=== PATIENT | male | born 1980 | race Asian ===

== ENCOUNTER 2016-11-20 20:06 | Inpatient (IN) | payer BC ==
[~2016-11-20] VITALS: Ht 180.3 cm; Wt 87.8 kg
[2016-11-20] MEDS ORDERED: HYDROCODONE/APAP 5-325MG TABLET PO ONE (21:00)
[2016-11-20] MEDS ORDERED: HYDROCODONE/APAP 5-325MG TABLET ONE (21:17)
[2016-11-20] MEDS ORDERED: DEXAMETHASONE SOD PHOSPHATE 4 MG INJ IV ONE (22:45)
[2016-11-20 22:50] LABS: BASOPHILS # (AUTO) 0.1 K/uL (0.0-8.0); BASOPHILS % (AUTO) 1.1 % (0.0-2.0); EOSINOPHILS # (AUTO) 0.2 K/uL (0.0-0.7); EOSINOPHILS % (AUTO) 1.8 % (0.0-7.0); HEMATOCRIT 44.9 % (40-50); HEMOGLOBIN 15.2 G/DL (14.0-18.0); LYMPHOCYTES # (AUTO) 2.5 K/UL (0.8-4.8); LYMPHOCYTES % (AUTO) 26.2 % (20.5-51.5); MEAN CORPUSCULAR HEMOGLOBIN 29.1 UUG (27.0-31.0); MEAN CORPUSCULAR HGB CONC 34 g/dL (32.0-37.0); MEAN CORPUSCULAR VOLUME 86.4 FL (82.0-92.0); MONOCYTES # (AUTO) 0.6 K/UL (0.1-1.30); MONOCYTES % (AUTO) 6.5 % (0.0-11.0); NEUTROPHILS # (AUTO) 6.1 K/UL (1.8-8.9); NEUTROPHILS % (AUTO) 64.4 % (38.5-71.5); PLATELET COUNT (AUTO) 291 K/UL (150-450); WHITE BLOOD COUNT (AUTO) 9.5 K/UL (4.0-11.2)
[2016-11-20 22:57] LABS: CREATININE 1.2 mg/dL (0.6-1.3); POTASSIUM 3.7 mmol/L (3.5-5.1)
[2016-11-20 23:03] LABS: BILIRUBIN,DIRECT 0.2 mg/dL (0.0-0.2); BILIRUBIN,TOTAL 0.7 mg/dL (0.2-1.0); TOTAL PROTEIN, SERUM 7.8 g/dL (6.4-8.2)
[2016-11-20] MEDS ORDERED: DEXAMETHASONE SOD PHOSPHATE 10 MG INJ ONE (23:04)
[2016-11-20] MEDS ORDERED: ONDANSETRON 4 MG/2 ML VIAL ONE (23:43)
[2016-11-20] MEDS ORDERED: MORPHINE SULFATE 2 MG/1 ML DISP.SYRIN ONE (23:43)
[2016-11-20] MEDS ORDERED: ONDANSETRON 4 MG/2 ML VIAL IV ONE (23:45)
[2016-11-20] MEDS ORDERED: MORPHINE SULFATE 2 MG/1 ML DISP.SYRIN IV ONE (23:45)
[2016-11-21] MEDS ORDERED: IV NS 1000 ML 1,000 ML IV ONE (00:15)
[2016-11-21 01:25] VITALS: BP 129/71
--- NOTE | 2016-11-21 01:30 | NUR ---
Pt. admitted to [place], under care of Karlie Glez List completed.
--- NOTE | 2016-11-21 01:30 | NUR ---
RECEIVED PATIENT FROM ER VIA GURNEY, ACCOMPANIED BY . PT IS ALERT, AMBULATORY, IN NO ACUTE DISTRESS, [place] C-COLLAR IN PLACE. PT IS ADMITTED UNDER THE CARE OF DR. VICK. DX: NECK INJURY. BELONGING LIST DONE, ADMISSION PROCESS AND CARE PLAN INITIATED. SAFETY MEASURES IN PLACE, C SPINE PRECAUTION AT ALL TIMES, CALL LIGHT WITHIN REACH. WILL CONTINUE TO MONITOR.
--- NOTE | 2016-11-21 01:45 | NUR ---
NOTIFIED FOR NEW ADMISSION ORDERS.
[2016-11-21] MEDS ORDERED: HYDROCODONE/APAP 5-325MG TABLET PO PRN (02:45)
[2016-11-21] MEDS ORDERED: ACETAMINOPHEN 325 MG TABLET PO PRN (02:45)
[2016-11-21] MEDS ORDERED: ZOLPIDEM 5 MG TABLET PO PRN (02:45)
[2016-11-21] MEDS ORDERED: ONDANSETRON 4 MG/2 ML VIAL IV PRN (02:45)
[2016-11-21] MEDS ORDERED: DEXAMETHASONE SOD PHOSPHATE 4 MG INJ IV ONE (02:45)
[2016-11-21] MEDS: MORPHINE SULFATE 2 MG/1 ML DISP.SYRIN IV PRN ×4 (03:04→20:07)
[2016-11-21] MEDS ORDERED: MORPHINE SULFATE 2 MG/1 ML DISP.SYRIN ONE (03:16)
[2016-11-21 05:03] VITALS: BP 115/63
--- NOTE | 2016-11-21 06:30 | NUR ---
PT SLEPT WELL, IN NO ACUTE DISTRESS. C SPINE PRECAUTION AT ALL TIMES. C SPINE COLLAR SECURED AND INTACT. PAIN MANAGEMENT ORDERED. MRI QUESTIONNAIRE COMPLETED AND SIGNED BY PATIENT. AT BEDSIDE, WILL CONTINUE TO MONITOR.
--- NOTE | 2016-11-21 07:40 | NUR ---
TEXTED DR. CENTENO FOR MRI APPROVAL.
[2016-11-21] MEDS: DEXAMETHASONE SOD PHOSPHATE 4 MG INJ IV SCH ×2 (08:18→20:06)
[2016-11-21 11:10] VITALS: BP 114/68
[2016-11-21 11:44] LABS: BASOPHILS % (AUTO) 0.3 % (0.0-2.0); EOSINOPHILS % (AUTO) 0.1 % (0.0-7.0); HEMATOCRIT 45.7 % (36.7-47.1); HEMOGLOBIN 15.8 g/dL (12.5-16.3); LYMPHOCYTES # (AUTO) 0.7 K/uL (20.0-40.0); LYMPHOCYTES % (AUTO) 6.6 % (20.5-51.5); MEAN CORPUSCULAR HEMOGLOBIN 30.2 uug (23.8-33.4); MEAN CORPUSCULAR HGB CONC 35 g/dL (32.5-36.3); MEAN CORPUSCULAR VOLUME 87.6 fL (73.0-96.2); MONOCYTES # (AUTO) 0.2 K/uL (2.0-10.0); NEUTROPHILS # (AUTO) 9.3 K/uL (1.8-8.9); PLATELET COUNT (AUTO) 282 K/uL (152-348); RED BLOOD CELL COUNT(AUTO) 5.22 MIL/uL (4.06-5.63); WHITE BLOOD COUNT (AUTO) 10.2 K/uL (3.6-10.2)
[2016-11-21 11:54] LABS: BILIRUBIN,TOTAL 1.1 mg/dL (0.2-1.0); CREATININE 1.1 mg/dL (0.6-1.3); POTASSIUM 4.5 mmol/L (3.5-5.1); TOTAL PROTEIN, SERUM 7.6 g/dL (6.4-8.2)
[2016-11-21 12:00] LABS: THYROID STIMULATING HORMONE 0.565 mIU/mL (0.358-3.740)
--- NOTE | 2016-11-21 13:46 | NUR ---
OPT SEEN ON ROUNDING. PT STABLE. NO SIGNS OF ACUTE DISTRESS. PT FOUND TO AHVE A NECK BRACE ON. ORDRED NOT TO TOUCH NECK BRACE. PT SENT TO [facility] FOR MRI WITHOUT CONTRACT CERVICAL SPINE. PT GIVEN MORPHINE IN AM FOR PAIN PRIOR TO TRANSFER. PT CAME BACKA AT 13OO WITH STABLE VITALS. NO PAIN REPORTED. PT TOLD TO COLLECT URINE SAMPLE. WILL AWAIT NEW ORDERS REGARDING SPINE.
--- NOTE | 2016-11-21 13:51 | NUR ---
PORTABLE CHEST WAS NOT DONE AT 1130 SINCE PT WAS TRANSPORTED TO MRI.
[2016-11-21 15:16] VITALS: BP 126/68
[2016-11-21 15:22] LABS: *BILIRUBIN,URIN NEGATIVE (NEGATIVE); *BLOOD, URINE NEGATIVE (NEGATIVE); *CLARITY,URINE CLEAR (CLEAR); *COLOR,URINE YELLOW (YELLOW); *KETONES,URINE NEGATIVE (NEGATIVE); *PROTEIN,URINE NEGATIVE (NEGATIVE); *UROBILINOGEN,URINE 0.2 E.U./dl (NORMAL); LEUKOCYTE ESTERASE ,URINE NEGATIVE (NEGATIVE); NITRITE, URINE NEGATIVE (NEGATIVE); UGLUCOSE NEGATIVE (NEGATIVE)
[2016-11-21 15:44] LABS: BACTERIA,URINE FEW /HPF (NONE SEEN); RBC,URINE 0-3 /HPF (0-3); SQUAMOUS EPITHELIAL CELL,UR MODERATE /HPF (NONE SEEN)
--- NOTE | 2016-11-21 18:55 | NUR ---
pt stable throughout the day. iv site intact and running ns. pt sent to the [facility] for cspine without contract. urine culture pending. 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 physcisan consult recommended. will endorse to night fit nurse.
[2016-11-21 20:00] VITALS: BP 130/71
--- NOTE | 2016-11-21 20:00 | NUR ---
received pt on bed alert, awake and oriented x4. Able to make needs known. at bedside during this time. Neck brace on. No acute distress noted. Complained of 6/10 neck pain, medicated with PRN morphine as ordered. Vital signs stable. Call light within reach. All needs attended. Will continue to monitor.
[2016-11-22] MEDS: MORPHINE SULFATE 2 MG/1 ML DISP.SYRIN IV PRN ×2 (01:19→08:24)
[2016-11-22 05:25] VITALS: BP 112/59
--- NOTE | 2016-11-22 06:03 | NUR ---
pt slept well during the shift. No acute distress noted. Cervical collar kept in place. Vital signs stable. All needs attended.
[2016-11-22 07:02] LABS: BASOPHILS % (AUTO) 0.1 % (0.0-2.0); EOSINOPHILS % (AUTO) 0.1 % (0.0-7.0); HEMATOCRIT 41.5 % (36.7-47.1); HEMOGLOBIN 14.1 g/dL (12.5-16.3); LYMPHOCYTES % (AUTO) 7.9 % (20.5-51.5); MEAN CORPUSCULAR HEMOGLOBIN 30.1 uug (23.8-33.4); MEAN CORPUSCULAR HGB CONC 34 g/dL (32.5-36.3); MEAN CORPUSCULAR VOLUME 88.8 fL (73.0-96.2); MONOCYTES # (AUTO) 0.9 K/uL (2.0-10.0); MONOCYTES % (AUTO) 6.5 % (0.0-11.0); NEUTROPHILS # (AUTO) 11.1 K/uL (1.8-8.9); NEUTROPHILS % (AUTO) 85.4 % (38.5-71.5); PLATELET COUNT (AUTO) 278 K/uL (152-348); RED BLOOD CELL COUNT(AUTO) 4.67 MIL/uL (4.06-5.63)
[2016-11-22 07:17] LABS: WHITE BLOOD COUNT (AUTO) 13.1 K/uL (3.6-10.2)
[2016-11-22 07:45] LABS: MAGNESIUM 2.1 mg/dL (1.8-2.4); PHOSPHOROUS 4.4 mg/dL (2.5-4.9); POTASSIUM 4.5 mmol/L (3.5-5.1)
--- NOTE | 2016-11-22 08:01 | NUR ---
pt seen on rounding. pt is stable. no signs of acute distress. no signs of acute distress noted. pt has pain around the neck area. no swelling noted. neck brace still on. pt will be given morphine for pain control. will await new orders.
[2016-11-22] MEDS: DEXAMETHASONE SOD PHOSPHATE 4 MG INJ IV SCH (09:07)
[2016-11-22 11:05] VITALS: BP 131/65
[2016-11-22] MEDS ORDERED: CARI350T PO (11:32)
[2016-11-22] MEDS ORDERED: HYDR-3326 PO (11:32)
--- NOTE | 2016-11-22 12:26 | NUR ---
PT LEFT AT 1230. PT VITALS STABLE. NO SIGNS OF ACUTE DISTRESS. NO PAIN ON NECK. C BRACE TAKEN OFF ORDERED BY MD. PT GIVEN DISCHARGE PRESCRIPTIONS FOR [place] AND [place] BY MD HATCH. PT GIVEN EXITCARE INSTRUCTIONS SUCH SMOKING CESSATION PAIN CONTROL AND NECK PAIN. PT VERBALIZES UNDERSTANDING. PT SIGNED DISHCARGE INSTRUCTIONS. PT ALSO SIGNED BELONGINGS LIST AND SENT HOME. PT ALSO GIVEN PRESCRIPTIONS PLACED IN CHART. PT USED WHEELCHAIR UPON DISCHARGE. ALL COPIES ON CHART.
== END 2016-11-22 12:20 | disposition home or self-care (01) | DRG 552 ==
LOC: ER 20:10 → MED 11-21 01:11
PROVIDERS: ADMIT Nurse Practitioner Acute Care; ATTEND Internal Medicine
DX: S16.1XXA Strain of muscle, fascia and tendon at neck level, initial encounter (principal); M48.02 Spinal stenosis, cervical region; R20.0 Anesthesia of skin; M43.12 Spondylolisthesis, cervical region; M25.78 Osteophyte, vertebrae; V43.52XA Car driver injured in collision with other type car in traffic accident, initial encounter; Y92.411 Interstate highway as the place of occurrence of the external cause; Z82.49 Family history of ischemic heart disease and other diseases of the circulatory system; Z80.0 Family history of malignant neoplasm of digestive organs
CPT/HCPCS: 36415; 71010; 72125; 72141; 83735; 84100; 84443; 85025; 85730; 87086; A4663; J1100; J2270; J2405; J7030